=== PATIENT | male | born 1975 | race Caucasian/White ===

== ENCOUNTER → 2019-03-19 | Outpatient (REF) ==
[~2019-03-19] MED LIST: ALB17R INH; ALB18R INH; ALB6.7R INH; AZI250 PO; AZIT-17 PO; CEP500 PO; CLIN300C99 PO; CPAP INH; DIA5 PO; DUL100/5PT INH; FLUT16SP19 NS; FLUT1DIS28 IH; HYDR-3250 PO; HYDR-385 PO; HYDR2TAB74 PO; IBUP-56 PO; IPRA4AER IH; KET10 PO; LORA-802 PO; METH4TAB66 PO; METR500T15 PO; MON10 PO; NAPR-744 PO; ONDA4TAB PO; OSE75 PO; OXYC-869 PO; PER PO; PRED20TA6 PO
[2019-03-19 10:21] LABS: LDL CHOLESTEROL 109 mg/dl
== END ==
DX: Z02.9 Encounter for administrative examinations, unspecified (principal)

== ENCOUNTER → 2019-03-28 | Outpatient (CLI) | payer OTHER ==
--- NOTE | 2019-03-28 09:26 | RADIOLOGY IMAGING REPORT ---
FACILITY: [facility] - [place] PATIENT NAME: Kalia Bermudez : 1975 MR: [id number] V: [id number] EXAM DATE: ORDERING PHYSICIAN: JUDD COHEN TECHNOLOGIST: Location: Patient: Kalia Bermudez : 1975 Visit/Account:[id number] Date of Sevice: 03/28/2019 THYROID HISTORY: Thyroid nodule COMPARISON: None. FINDINGS: SIZE: Right lobe: 5.2 x 1.9 x 2.1 cm Left lobe: 4.7 x 2.1 x 1.9 cm Isthmus: 4 mm PARENCHYMA: Homogeneous. NODULES: Right lobe: * None discrete. Left lobe: * In the mid left lobe there is a 1 x 1.2 x 1.1 cm hypoechoic with microlobulated margins and contai ns microcalcifications. Isthmus: * None discrete. VASCULARITY: Within normal limits. ADDITIONAL FINDINGS: None. IMPRESSION: In the mid left lobe there is a 1 x 1.2 x 1.1 cm hypoechoic mass with microlobulated margins and micr ocalcifications. Ultrasound-guided fine-needle aspiration biopsy is recommended . REFERENCE: 2015 [place] [employer] Management Guidelines for Adult Patients with Thyroid Nodules and D ifferentiated Thyroid Cancer: The [place] [employer] Guidelines Task Force on Thyroid Nodul es and Differentiated Thyroid Cancer. SONOGRAPHIC PATTERNS: * Benign: Purely cystic nodules (no solid component); estimated risk of malignancy <1 percent; no bi opsy recommended. * Very Low Suspicion: Spongiform or partially cystic nodules without any of the sonographic features described in low, intermediate, or high suspicion patterns; estimated risk of malignancy <3 percent; consider FNA at > 2 cm (Observation without FNA is also a reasonable option). * Low Suspicion: Isoechoic or hyperechoic solid nodule, or partially cystic nodule with eccentric so lid areas, without microcalcification, irregular margin or ETE (extra-thyroidal extension), or taller than wide shape; estimated risk of malignancy 5-10 percent; recommend FNA at >1.5 cm. * Intermediate Suspicion: Hypoechoic solid nodule with smooth margins without microcalcifications, E TE (extra-thyroidal extension), or taller than wide shape; estimated risk of malignancy 10-20 percent ; recommend FNA at > 1 cm. * High Suspicion: Solid hypoechoic nodule or solid hypoechoic component of a partially cystic nodule with one or more of the following features: irregular margins (infiltrative, microlobulated), microc alcifications, taller than wide shape, rim calcifications with small extrusive soft tissue component, evidence of ETE (extra-thyroidal extension); estimated risk of malignancy >70-90 percent; recommend FNA at > 1 cm. NOTES: * Although a sonographically suspicious subcentimeter thyroid nodule without evidence of extrathyroi alden extension or sonographically suspicious lymph nodes may be observed with close sonographic follow -up rather than pursuing immediate FNA, patient age and preference may modify decision-making. A > 50% interval increase in nodule volume and/or development of new suspicious sonographic features are felt to be a valid reasons for potential re-aspiration of a nodule previously shown to have benig n FNA cytology. Report Dictated By: Avis Oakes MD at 03/28/2019 9:19 AM Report E-Signed By: Avis Oakes MD at 03/28/2019 9:22 AM WSN:[email or web address]
== END ==
LOC: US 00:30
PROVIDERS: ATTEND Internal Medicine
DX: E04.1 Nontoxic single thyroid nodule (principal)
CPT/HCPCS: 76536

== ENCOUNTER → 2019-03-31 | Outpatient (CLI) | payer OTHER ==
[2019-03-31 17:32] LABS: INR 1.01
== END ==
LOC: LAB 16:45
PROVIDERS: ATTEND Internal Medicine
DX: Z01.818 Encounter for other preprocedural examination (principal); R93.89 Abnormal findings on diagnostic imaging of other specified body structures
CPT/HCPCS: 36415; 85610

== ENCOUNTER → 2019-04-01 | Outpatient (CLI) | payer OTHER ==
--- NOTE | 2019-04-01 12:22 | RADIOLOGY IMAGING REPORT ---
FACILITY: [facility] - [place] PATIENT NAME: Kalia Bermudez : 1975 MR: [id number] V: [id number] EXAM DATE: ORDERING PHYSICIAN: JUDD COHEN TECHNOLOGIST: Location: [facility] - [place] Patient: Kalia Bermudez : 1975 Visit/Account:[id number] Date of Sevice: 04/01/2019 Ultrasound guided thyroid fine-needle aspiration Indication: Indeterminate left thyroid nodule Comparison: March 28, 2019. Findings: After informed consent was obtained, the patient was prepped and draped in the standard megan rile fashion. Local anesthesia was obtained with 1% lidocaine. Using ultrasound guidance, 4 fine-needle aspirates were obtained of a predominantly solid nodule with in the mid left thyroid lobe. Pathology reported that the sample was adequate. There were no immediate complications and the patient tolerated the procedure well. IMPRESSION: 1. Successful ultrasound guided fine needle aspiration thyroid nodule within the mid left thyroid lob e Report Dictated By: Tyler Marin MD at 04/01/2019 12:16 PM Report E-Signed By: Tyler Marin MD at 04/01/2019 12:17 PM WSN:[email or web address]
== END ==
LOC: US 07:01
PROVIDERS: ATTEND Internal Medicine
DX: E04.1 Nontoxic single thyroid nodule (principal)
CPT/HCPCS: 10005; 88104; 88172

== ENCOUNTER → 2019-04-17 | Outpatient (CLI) | payer OTHER ==
[~2019-04-17] MED LIST changes: +IOPAMIDOL 76% 100 ML INFUS BTL 100 ML ONE
--- NOTE | 2019-04-17 13:25 | RADIOLOGY IMAGING REPORT ---
[place] [facility] [place] NAME: Kalia Bermudez : 1975 MR: [id number] V: [id number] EXAM DATE: ORDERING PHYSICIAN: SHAD TEMPLETON TECHNOLOGIST: Location: [facility] Patient: Kalia Bermudez : 1975 Visit/Account:[id number] Date of Sevice: 04/17/2019 CT neck with contrast Comparison: None Additional pertinent history: Thyroid cancer TECHNIQUE: Multiple axial images were obtained from the mid portion of the brain through the superio r mediastinum with IV contrast. Coronal and sagittal reformatted images were obtained off the axial source data. One of the following dose optimization techniques was utilized in the performance of t his exam: Automated exposure control; adjustment of the mA and/or kV according to the patient's size; or use of an iterative reconstruction technique. Specific details can be referenced in the [facility] y's radiology CT exam operational policy. CONTRAST: 75 mL of Isovue-370 FINDINGS: Visualized portions of the brain parenchyma:Negative Parotid glands/submandibular glands/thyroid: Negative Orbits: Negative Paranasal sinuses: Negative Parapharyngeal spaces: Negative Nasopharynx/oropharynx/hypopharynx: Negative Tonsillar pillars: Negative Oral tongue/tongue base: Negative True and false cords: Negative Lymph node assessment:Negative Surrounding soft tissues: Negative Vasculature: Negative Osseous structures: Negative Lung apices: Negative IMPRESSION: 1. No acute process involving the neck. Report Dictated By: Gen Mcmanus MD at 04/17/2019 12:36 PM Report E-Signed By: Gen Mcmanus MD at 04/17/2019 1:20 PM WSN:[email or web address]
--- NOTE | 2019-04-17 15:02 | RADIOLOGY IMAGING REPORT ---
FACILITY: [facility] - [place] PATIENT NAME: Kalia Bermudez : 1975 MR: [id number] V: [id number] EXAM DATE: ORDERING PHYSICIAN: SHAD TEMPLETON TECHNOLOGIST: Location: [facility] Patient: Kalia Bermudez : 1975 Visit/Account:[id number] Date of Sevice: 04/17/2019 CT CHEST (CONTRAST) History: Thyroid cancer check for metastatic disease TECHNIQUE: Contiguous axial images were performed through the chest to the level of the adrenal gla nds following the administration of IV contrast. Coronal and sagittal reformatting was also perform ed.Dose Lowering Technique One of the following dose optimization techniques was utilized in the performance of this exam: Autom ated exposure control; adjustment of the mA and/or kV according to the patient's size; or use of an i terative reconstruction technique. Specific details can be referenced in the facility's radiology C T exam operational policy. Contrast: 75 mL Isovue-370 COMPARISON STUDIES: none. Lungs / Pleura: There is no evidence of pulmonary nodules pulmonary infiltrates or pleural effusion s. The inferior most aspect of the lower lobes are not entirely included on the study Mediastinum/nodes: No pathologically enlarged mediastinal lymph nodes are identified by size criteri a Heart and vessels: negative. Musculoskeletal / Body wall: The proximal 1 cm left-sided thyroid nodule is a faintly visualized al though is better detected sonographically Upper abdomen: There is mild hepatic steatosis IMPRESSION: No evidence of pulmonary metastases however the inferior most aspect of the lower lobes are not inclu ded on the study Report Dictated By: Avis Oakes MD at 04/17/2019 2:54 PM Report E-Signed By: Avis Oakes MD at 04/17/2019 2:57 PM WSN:[email or web address]
== END ==
LOC: CT 01:06
PROVIDERS: ATTEND Surgery
DX: C73 Malignant neoplasm of thyroid gland (principal)
CPT/HCPCS: 70491; 71260; Q9967

== ENCOUNTER → 2019-05-06 | Outpatient (CLI) | payer OTHER ==
[~2019-05-06] MED LIST changes: +ACET500T68 PO; +IBUP400T13 PO; -IOPAMIDOL 76% 100 ML INFUS BTL 100 ML ONE
--- NOTE | 2019-05-06 12:16 | EKG ---
FACILITY: [facility] PATIENT NAME: BENJAMIN LIAO : [id number] MR: [id number] V: [id number] EXAM DATE: ORDERING PHYSICIAN: JUDD COHEN TECHNOLOGIST: LEYDI Test Reason : PRE-OP Blood Pressure : / mmHG Vent. Rate : 074 BPM Atrial Rate : 074 BPM P-R Int : 166 ms QRS Dur : 076 ms QT Int : 384 ms P-R-T Axes : 025 014 039 degrees QTc Int : 426 ms Normal sinus rhythm Normal ECG When compared with ECG of 07-AUG-2016 08:19, No significant change was found Confirmed by JEN HOWELL ([id number]) on 05/07/2019 12:56:50 AM Referred By: VICKI Confirmed By:JEN HOWELL
== END ==
LOC: CARD 08:56
PROVIDERS: ATTEND Internal Medicine
DX: Z02.9 Encounter for administrative examinations, unspecified (principal)

== ENCOUNTER 2019-05-15 00:19 | Observation (INO) | payer OTHER ==
[~2019-05-15] VITALS: Ht 182.9 cm; Wt 147.0 kg
[2019-05-15] VITALS (14 sets, daily range): BP systolic 110–149; BP diastolic 67–91
[2019-05-15] MEDS ORDERED: VANCOMYCIN IVPB ONE (08:15)
[2019-05-15] MEDS ORDERED: [UNRECOGNIZED DRUG - OTHER] IVPB ONE (08:15)
[2019-05-15] MEDS ORDERED: VANCOMYCIN(*) 1 GM VIAL 2 GM, VANCOMYCIN (*) 0.5 GM VIAL 0.25 GM in NS(*) 0.9% 500 ML B... IVPB ONE ×2 (08:15)
[2019-05-15] MEDS ORDERED: VANCOMYCIN(*) 1 GM VIAL 2 GM in NS(*) 0.9% 250 ML BAG 250 ML IVPB ONE (08:15)
[2019-05-15] MEDS ORDERED: VANCOMYCIN(*) 1 GM VIAL 1.5 GM in NS(*) 0.9% 250 ML BAG 250 ML IVPB ONE (08:30)
[2019-05-15] MEDS ORDERED: ceFAZolin(*) 1 GM VIAL 3 GM in NS(*) 0.9% 100 ML BAG 100 ML IVPB ONE (09:00)
[2019-05-15] MEDS ORDERED: fentaNYL CITR 250 MCG/5 ML AMP ONE (09:24)
[2019-05-15] MEDS ORDERED: LIDOCAINE 2% IV 100 MG/5ML SYR ONE (09:25)
[2019-05-15] MEDS ORDERED: PROPOFOL EMUL(*) 10MG/ML 20 ML 20 ML ONE ×2 (09:25→10:54)
[2019-05-15] MEDS ORDERED: SUCCINYLCHOL CHL 100MG/5ML SYR IVP ONE (09:28)
[2019-05-15] MEDS ORDERED: MIDAZOLAM 2 MG/2 ML VIAL IVP PRN (09:55)
[2019-05-15] MEDS ORDERED: NORMOSOL R SOLN(*) 1000 ML BAG 1,000 ML IV PRN (09:55)
[2019-05-15] MEDS ORDERED: FAMOTIDINE 20 MG TAB PO ONE (09:55)
[2019-05-15] MEDS ORDERED: LIDOCAINE/SOD BICARB 8.4% SYR ID ONE (09:55)
[2019-05-15] MEDS ORDERED: ROPIVACAINE 0.5% 20 ML VIAL ONE (09:56)
[2019-05-15] MEDS ORDERED: DEXAMETHASONE SOD 4 MG/ML VIAL ONE (10:15)
[2019-05-15] MEDS ORDERED: KETAMINE HCL 200 MG/20 ML MDV ONE ×2 (10:20→11:27)
[2019-05-15] MEDS ORDERED: fentaNYL CITR 100 MCG/2 ML AMP ONE ×2 (10:58→13:11)
[2019-05-15] MEDS ORDERED: ONDANSETRON 4 MG/2 ML VIAL ONE (11:53)
[2019-05-15] MEDS ORDERED: ALBUTEROL/IPRATROPIUM 3 ML NEB NEB PRN (12:55)
[2019-05-15] MEDS ORDERED: NS(*) 0.9% 1000 ML BAG 1,000 ML IV PRN (12:55)
[2019-05-15] MEDS ORDERED: FLUSH 10 ML SYR IVP PRN (12:55)
[2019-05-15] MEDS ORDERED: HYDROmorphone HCL 2 MG/ML SDV IVP PRN (12:55)
[2019-05-15] MEDS ORDERED: ONDANSETRON 4 MG/2 ML VIAL IVP PRN (12:55)
--- NOTE | 2019-05-15 13:26 | Post Operative Progress Note ---
Post Operative Progress Note Date: May 15, 2019 Time: 12:59 Surgeon: Kushal Dictation number: [id number] Anesthesia: GETA by Dr. 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
[2019-05-15] MEDS: traMADol 50 MG TAB PO PRN ×2 (14:38→18:50)
[2019-05-15] MEDS: ACETAMINOPHEN 325 MG TAB PO PRN ×2 (14:38→18:49)
--- NOTE | 2019-05-15 15:02 | OPERATIVE REPORT 1 ---
EVENT DATE: May 15, 2019 SURGEON: Efren Fatima MD ANESTHESIOLOGIST: Farshad Jones MD ANESTHESIA: General endotracheal anesthesia. PREOPERATIVE DIAGNOSIS Left lobe papillary thyroid carcinoma. POSTOPERATIVE DIAGNOSIS Left lobe papillary thyroid carcinoma. PROCEDURE PERFORMED Left thyroid lobectomy. COMPLICATIONS None. CONDITION Stable. BLOOD LOSS Minimal. SPECIMENS Left thyroid lobe. 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 Apparently, they were testing out a piece of imaging equipment, possibly related to their MRI machine but possibly something else, and he volunteered to be the subject and incidentally found was a left thyroid nodule. Subsequent thyroid ultrasound and ultrasound guided biopsy revealed the nodule to be a papillary thyroid carcinoma that measured 1.4 cm in diameter. He was then referred to me, and we further worked him up for lymphadenopathy, and with a neck and chest CT, and there was no evidence of cancer elsewhere in his neck or chest, in the lymph nodes, or otherwise. I then discussed with him performing a left thyroid lobectomy due to the small size of the primary tumor. I did explain that it is possible he may require a right thyroid lobectomy or a completion thyroidectomy at some point in the future, and he agreed to proceed with a left thyroid lobectomy. DESCRIPTION OF PROCEDURE The patient was brought to the operating room and placed supine on the operating table. General endotracheal anesthesia was administered, and I inserted the nerve monitor leads in the dermis of his upper chest. The nerve monitor and endotracheal tube were inserted without any problems as well. He was placed in the reclining beach chair position on the table, and his neck was prepped and draped in a sterile fashion. Timeout was completed. I identified a good location for his incision in the suprasternal location and then made a 6 cm transversely oriented Deb-type incision parallel with the Narinder lines and dissected through the dermis and subcutaneous fat and then identified the platysma muscle, which I divided. I created subplatysmal flaps up to the thyroid cartilage and down to the sternal notch. I then divided the median raphe vertically in the midline all the way down to the thyroid and then started my dissection to the left of midline anterior to the thyroid deep to the strap muscles. I dissected all the way around the thyroid laterally and then divided the inferior thyroidal vessels around the inferior pole and the superior thyroidal vessels around the superior pole, which helped mobilize the left thyroid lobe medially. I divided the isthmus by creating a plane between the anterior trachea and the thyroid, and this further helped mobilize it. I dissected laterally into the ligament of Sullivan, but not too far so as not to injure the nerve. As I got into nerve territory, I used the nerve monitor and identified the nerve very clearly, which was intimately associated with the thyroid gland, and took some fine dissection to separate the thyroid away from the nerve. I identified the superior parathyroid gland, which was left in situ. The inferior parathyroid, I think, was in some fat and was not clearly identified, but not clearly removed either. I slowly dissected the thyroid away from the nerve using the nerve monitor throughout this process to continue to ensure function of the nerve and ultimately was able to divide the ligament of Sullivan and separate the thyroid from the nerve and then passed this off the field. I then tested the nerve once again, and it was functional all along its entire course with no evidence of injury. There was no active bleeding. I irrigated and dried the wound in the neck and then placed a 10 mm round drain into this space and exited the neck in the midline. I also placed a piece of Fibrillar hemostatic agent in the neck as well. I then closed the strap muscles with interrupted 3-0 Vicryl sutures, then the platysma was closed with interrupted 3-0 Vicryl sutures, and then the skin was closed with interrupted 3- 0 Vicryl deep dermal sutures and 4-0 Monocryl running subcuticular sutures. Skin was cleaned and dried, and Steri-Strips were applied, and then I secured the drain to the skin with a single 0 silk suture and then placed drain dressings around the drain. We extubated the patient deep and then inspected the cords, and they were symmetric. An LMA was then placed to allow him to wake up a little more slowly, but ultimately he was awakened and the LMA removed. He was transported to the recovery room in stable condition having tolerated the procedure without apparent problems. AVNI
[2019-05-15] MEDS: SALMETEROL/FLUTIC 250/50 1 INH INH SCH (17:34)
[2019-05-15] MEDS: FAMOTIDINE 20 MG TAB PO SCH (21:26)
[2019-05-15] MEDS: DOCUSATE SODIUM 100 MG CAP PO SCH (21:26)
[2019-05-16 03:27] VITALS: BP 122/74
[2019-05-16] MEDS: traMADol 50 MG TAB PO PRN (03:39)
[2019-05-16] MEDS: ACETAMINOPHEN 325 MG TAB PO PRN (03:40)
[2019-05-16] MEDS: SALMETEROL/FLUTIC 250/50 1 INH INH SCH (05:19)
[2019-05-16 07:01] VITALS: BP 114/67
[2019-05-16] MEDS ORDERED: DOCU-202 PO (08:12)
[2019-05-16] MEDS ORDERED: TRAM-420 PO (08:12)
--- NOTE | 2019-05-16 08:15 | Short(Outpt) Discharge Summary ---
Discharge Summary Reason for Hosp/Final Diag: (1) Papillary thyroid carcinoma Status: Chronic Hospital Course & Plan: 05/16/19: POD#1 s/p left thyroid lobectomy. Pt doing well. No issues overnight. Drain output minimal; drain removed this morning. Will d/c to home. Departure Discharge to: Home, Self Care Discharge Instructions Home Meds Active Scripts Tramadol Hcl (TRAMADOL HCL) 50 Mg Tablet, 1 TAB PO Q4H PRN for PAIN, #15 TAB 0 Refills Prov:SHAD TEMPLETON MD 05/16/19 Docusate Sodium (DOCUSATE SODIUM) 100 Mg Capsule, 1 CAP PO BID, #30 CAPSULE 0 Refills Prov:SHAD TEMPLETON MD 05/16/19 Fluticasone/Salmeterol (ADVAIR 250-50 DISKUS) 1 Each Disk.w.dev, 1 EACH IH BID, #1 DISK 6 Refills Prov:JUDD COHEN MD 05/06/19 Albuterol Sulfate (PROVENTIL HFA) 6.7 Gm Inh, 2 PUFF INH Q4-6H, #1 INH 0 Refills Prov:JUDD COHEN MD 10/24/18 Reported Medications Ibuprofen (IBUPROFEN) 400 Mg Tablet, 2 TAB PO Q6H PRN for PAIN, TAB 05/07/19 Acetaminophen (TYLENOL EXTRA STRENGTH) 500 Mg Tablet, 500 MG PO PRN, TAB 05/07/19 Follow up Referrals: General Surgery - 05/28/19 @ Surgery, General with SHAD TEMPLETON MD You have a follow up appointment scheduled with Dr. Templeton on 05/28/19, at 3:45pm. Diet: Regular Activity: As Tolerated Special Instructions: You may remove the drain dressing on 05/17/19, then you can shower. After showering, leave the incision and drain site open to air but leave the steristrips in place until they fall off on their own. Do not immerse the incision or drain site for 2 weeks. Avoid any activity that involves straining or lifting more than 10 pounds for 5 days after surgery. SHAD TEMPLETON MD May 16, 2019 08:15
[2019-05-16 08:24] VITALS: Ht 182.9 cm; Wt 147.0 kg
[2019-05-16] MEDS: DOCUSATE SODIUM 100 MG CAP PO SCH (08:51)
[2019-05-16] MEDS: FAMOTIDINE 20 MG TAB PO SCH (08:51)
[2019-05-16 10:09] VITALS: BP 119/77
== END 2019-05-16 09:09 | disposition home or self-care (01) ==
LOC: OR 00:19 → INTOOBSV 14:10 → MED 14:10
PROVIDERS: ADMIT Surgery; ATTEND Surgery
DX: C73 Malignant neoplasm of thyroid gland (principal); G47.33 Obstructive sleep apnea (adult) (pediatric); E66.01 Morbid (severe) obesity due to excess calories; Z68.41 Body mass index [BMI] 40.0-44.9, adult; J45.909 Unspecified asthma, uncomplicated; Z99.81 Dependence on supplemental oxygen
CPT/HCPCS: 36415; 60210; 88307; 94640; G0378; J0330; J1100; J2001; J2250; J2405; J2704; J2795; J3010; J3370; J3490; J3535; J7040; 82310; 82374; 82435; 82565; 82947; 84132; 84295; 84520

== ENCOUNTER 2019-06-05 01:06 | Observation (INO) | payer OTHER ==
[2019-06-03 16:39] LABS: PLATELET COUNT, AUTOMATED 210 K/uL (150-450)
[~2019-06-05] VITALS: Ht 182.9 cm; Wt 147.0 kg
[2019-06-05] VITALS (11 sets, daily range): BP systolic 109–145; BP diastolic 65–87
[~2019-06-05 01:06] MED LIST changes: +DOCU-202 PO; +TRAM-420 PO
[2019-06-05] MEDS ORDERED: LIDOCAINE MPF 1% 5 ML VIAL ONE (07:52)
[2019-06-05] MEDS ORDERED: METOCLOPRAMIDE 10 MG/2 ML SDV ONE ×2 (07:52→09:32)
[2019-06-05] MEDS ORDERED: PROPOFOL EMUL(*) 10MG/ML 20 ML 20 ML ONE (07:52)
[2019-06-05] MEDS ORDERED: ONDANSETRON 4 MG/2 ML VIAL ONE (07:52)
[2019-06-05] MEDS ORDERED: DEXAMETHASONE SOD 4 MG/ML VIAL ONE (09:39)
[2019-06-05] MEDS ORDERED: VANCOMYCIN(*) 1 GM VIAL 2.25 GM in NS(*) 0.9% 250 ML BAG 250 ML IVPB ONE ×2 (10:55→12:30)
[2019-06-05] MEDS ORDERED: fentaNYL CITR 250 MCG/5 ML AMP ONE (11:05)
[2019-06-05] MEDS ORDERED: ROCURONIUM BR 10 MG/ML 5 ML SY 5 ML ONE (11:07)
[2019-06-05] MEDS ORDERED: MIDAZOLAM 2 MG/2 ML VIAL IVP PRN (12:30)
[2019-06-05] MEDS ORDERED: PREGABALIN 150 MG CAPSULE PO ONE (12:30)
[2019-06-05] MEDS ORDERED: FAMOTIDINE 20 MG TAB PO ONE (12:30)
[2019-06-05] MEDS ORDERED: NORMOSOL R SOLN(*) 1000 ML BAG 1,000 ML IV PRN (12:30)
[2019-06-05] MEDS ORDERED: LIDOCAINE/SOD BICARB 8.4% SYR ID ONE (12:30)
[2019-06-05] MEDS ORDERED: ACETAMINOPHEN 500 MG TAB PO ONE (12:30)
[2019-06-05] MEDS ORDERED: ROPIVACAINE 0.5% 20 ML VIAL ONE (13:09)
[2019-06-05] MEDS ORDERED: KETAMINE HCL 200 MG/20 ML MDV ONE (13:28)
[2019-06-05] MEDS ORDERED: SUCCINYLCHOL CHL 100MG/5ML SYR IVP ONE (13:30)
[2019-06-05] MEDS ORDERED: LIDOCAINE 2% IV 100 MG/5ML SYR ONE (15:42)
[2019-06-05] MEDS ORDERED: fentaNYL CITR 100 MCG/2 ML AMP ONE (16:38)
[2019-06-05] MEDS ORDERED: FLUSH 10 ML SYR IVP PRN (16:40)
[2019-06-05] MEDS ORDERED: ONDANSETRON 4 MG/2 ML VIAL IVP PRN (16:40)
[2019-06-05] MEDS ORDERED: NS(*) 0.9% 1000 ML BAG 1,000 ML IV PRN (16:40)
[2019-06-05] MEDS ORDERED: MORPHINE 2 MG/ML SYR IVP PRN (16:40)
[2019-06-05] MEDS ORDERED: ACETAMINOPHEN 325 MG TAB PO PRN (16:40)
--- NOTE | 2019-06-05 16:52 | Post Operative Progress Note ---
Post Operative Progress Note Date: Jun 05, 2019 Time: 16:43 Surgeon: Kushal Dictation number: [id number] Anesthesia: GETA by Dr. Marie Pre-Op Diagnosis: Papillary thyroid cancer Post-Op Diagnosis: KRYSTIN Findings: None Procedure(s): Completion right thyroid lobectomy Specimen Removed:(May be N/A): Right thyroid lobe Complications: None Fluids: see anesthesia record Estimated Blood Loss: Minimal Date OP Note Dictated: Jun 05, 2019 Time OP Note Dictated: 16:44 SHAD TEMPLETON MD Jun 05, 2019 16:52
[2019-06-05 16:55] LABS: PLATELET COUNT, AUTOMATED 193 K/uL (150-450)
--- NOTE | 2019-06-05 17:35 | OPERATIVE REPORT 1 ---
EVENT DATE: June 05, 2019 SURGEON: Efren Fatima MD ANESTHESIOLOGIST: Efren Marie MD ANESTHESIA: General endotracheal anesthesia. PREOPERATIVE DIAGNOSIS Papillary thyroid cancer, left lobe. POSTOPERATIVE DIAGNOSIS Papillary thyroid cancer, left lobe. PROCEDURE PERFORMED Completion right thyroid lobectomy. COMPLICATIONS None. CONDITION Stable. BLOOD LOSS Minimal. INDICATIONS This is a 44-year-old gentleman who I removed his left thyroid lobe three or four weeks ago for a papillary thyroid cancer that was about 1.6 cm in diameter, but the anterior margin came up to the capsule, and the margin was positive, and so I consented him for a completion right thyroid lobectomy in preparation for radioactive iodine treatment. DESCRIPTION OF PROCEDURE The patient was brought to the operating room and placed upon the operating table. General endotracheal anesthesia was administered with a nerve monitoring endotracheal tube. He was placed in a reclining beach chair position with his arms tucked at his sides and his neck extended. His neck was then prepped and draped in a sterile fashion. Timeout was completed. I injected the skin around the previous scar with 0.5% ropivacaine plain. I then made an incision right through the previous Deb transverse incision from the previous thyroid lobectomy, dissected through the dermis and subcutaneous fat, identified the platysma muscle, divided this, created subplatysmal flaps up to the thyroid cartilage and down to the sternum, and then divided the median raphe between the vertical strap muscles down to identify the thyroid. I then dissected posterior to the strap muscles laterally around the thyroid and sequentially dissected around the superior and inferior poles and then carefully went through the superior and inferior pole vascular bundles, which served to mobilize the thyroid. I went around the lateral edge and used the nerve monitor to monitor for the nerve location, and I was able to identify the nerve as well as both parathyroid glands. I dissected from lateral to medial to the ligament of Sullivan and then dissected the thyroid off the trachea, being careful to preserve the recurrent laryngeal nerve and the parathyroid glands. The thyroid lobe was passed off the field. The wound was irrigated and dried, and I placed some Fibrillar Surgicel into the wound. I then placed a 10-German round drain into the patient's right neck, and it exited in the suprasternal notch. I sewed the drain to the skin with a 3-0 silk suture. After making sure that the wound continued to be hemostatic, I closed the strap muscles in the midline with interrupted 3-0 Vicryl sutures and then closed the platysma muscle with interrupted 3-0 Vicryl sutures, and then the skin was closed with interrupted 3- 0 Vicryl deep dermal sutures and 4-0 Monocryl running subcuticular sutures. The skin was cleaned and dried, and Steri-Strips were applied. I covered the drains with drain dressings. We then extubated the patient rather deep. I inspected the vocal cords, and they were symmetric. Then, he was reintubated with an LMA until he was woken up a little bit more. The anesthesiologist removed the LMA, and he was brought to the recovery room in good condition. AVNI
[2019-06-05] MEDS ORDERED: ALB6.7R INH (17:36)
[2019-06-05] MEDS: CALCIUM CARBONATE/VITAMIN D3 PO SCH (17:59)
[2019-06-05] MEDS: traMADol 50 MG TAB PO PRN (17:59)
[2019-06-05] MEDS: FAMOTIDINE 20 MG TAB PO SCH (20:36)
[2019-06-05] MEDS: DOCUSATE SODIUM 100 MG CAP PO SCH (20:37)
[2019-06-06 00:48] VITALS: BP 110/72
[2019-06-06] MEDS: traMADol 50 MG TAB PO PRN (00:55)
[2019-06-06 02:00] VITALS: BP 110/67
[2019-06-06 05:39] LABS: PLATELET COUNT, AUTOMATED 187 K/uL (150-450)
[2019-06-06 07:09] VITALS: BP 98/56
[2019-06-06] MEDS: FAMOTIDINE 20 MG TAB PO SCH (08:42)
[2019-06-06] MEDS: DOCUSATE SODIUM 100 MG CAP PO SCH (08:42)
[2019-06-06] MEDS: CALCIUM CARBONATE/VITAMIN D3 PO SCH (08:42)
[2019-06-06] MEDS ORDERED: Calcium Carbonate/Vitamin D3 PO (08:47)
[2019-06-06] MEDS ORDERED: DOCU-202 PO (08:47)
[2019-06-06] MEDS ORDERED: TRAM-420 PO (08:47)
[2019-06-06 08:49] VITALS: Ht 182.9 cm; Wt 147.0 kg
--- NOTE | 2019-06-06 08:52 | Short(Outpt) Discharge Summary ---
Discharge Summary Reason for Hosp/Final Diag: (1) Thyroid cancer Status: Chronic Hospital Course & Plan: 06/06/19: POD#1 s/p completion right thyroid lobectomy. Doing well. Calcium OK this morning. Drain removed. He's doing well. D/C to home this morning. Departure Discharge to: Home, Self Care Discharge Instructions Home Meds Active Scripts Docusate Sodium (DOCUSATE SODIUM) 100 Mg Capsule, 1 CAP PO BID, #30 CAPSULE 0 Refills Prov:SHAD TEMPLETON MD 06/06/19 [Calcium Carbonate/Vitamin D3] 1 ea TAB No Conflict Check, 1 TAB PO BIDBS, #30 TAB 0 Refills Prov:SHAD TEMPLETON MD 06/06/19 Tramadol Hcl (TRAMADOL HCL) 50 Mg Tablet, 1 TAB PO Q4H PRN for PAIN, #15 TAB 0 Refills Prov:SHAD TEMPLETON MD 06/06/19 Fluticasone/Salmeterol (ADVAIR 250-50 DISKUS) 1 Each Disk.w.dev, 1 EACH IH BID, #1 DISK 6 Refills Prov:JUDD COHEN MD 05/06/19 Albuterol Sulfate (PROVENTIL HFA) 6.7 Gm Inh, 2 PUFF INH Q4-6H, #1 INH 0 Refills Prov:JUDD COHEN MD 10/24/18 Reported Medications Albuterol Sulfate (PROVENTIL HFA) 6.7 Gm Inh, 2 PUFF INH Q4-6H PRN for WHEEZING, INH 06/05/19 Acetaminophen (TYLENOL EXTRA STRENGTH) 500 Mg Tablet, 500 MG PO PRN, TAB 05/07/19 Discontinued Scripts Docusate Sodium (DOCUSATE SODIUM) 100 Mg Capsule, 1 CAP PO BID, #30 CAPSULE 0 Refills Prov:SHAD TEMPLETON MD 05/16/19 Follow up Referrals: General Surgery - 06/23/19 @ Surgery, General with SHAD TEMPLETON MD You have a follow up appointment scheduled with Dr. Templeton on 06/23/19, at 4:00pm. Diet: Regular Activity: No Heavy Lifting Special Instructions: You may remove the dressing from your drain site on 06/07/19, then you can shower. After showering, leave the incision and drain site open to air (if there's no further drainage, cover the drain site if it's draining and change daily until no further drainage) but leave the steristrips in place until they fall off on their own. Do not immerse the incisions for 2 weeks. Avoid taking NSAIDS (ibuprofen, motrin, aleve, advil, naprosyn, naproxen, aspirin, etc) until 06/09/19. Tylenol (acetaminophen) is OK to take. Avoid any activity that involves straining or lifting more than 10 pounds for 1 week after surgery. Have your blood drawn so I can check your TSH and calcium on the morning of your follow up appointment so I'll have the results when I see you back at your appointment. SHAD TEMPLETON MD Jun 06, 2019 08:52
== END 2019-06-06 08:44 | disposition home or self-care (01) ==
LOC: OR 01:06 → INTOOBSV 17:24 → MED 17:24
PROVIDERS: ADMIT Surgery; ATTEND Surgery
DX: C73 Malignant neoplasm of thyroid gland (principal)
CPT/HCPCS: 36415; 60260; 84443; 85025; 88307; G0378; J0330; J1100; J2001; J2250; J2405; J2704; J2765; J2795; J3010; J3370; J3490; J7050; 82310; 82374; 82435; 82565; 82947; 84132; 84295; 84520

== ENCOUNTER → 2019-07-15 | Outpatient (CLI) | payer OTHER ==
[2019-06-06 08:49] VITALS: BMI 43.9
[~2019-07-15] MED LIST changes: +Calcium Carbonate/Vitamin D3 PO
--- NOTE | 2019-07-16 05:56 | PROCEDURE NOTE ---
EVENT DATE: July 15, 2019 DIAGNOSIS Papillary carcinoma of the thyroid gland. Status post left thyroid lobectomy, 05/15/19; completion thyroidectomy, 06/06/19. Referral for iodine-131 considerations with 1.5 cm tumor with extension to margins. Pathologic T1b pNX. PROCEDURE Oral administration under direct supervision of iodine-131. Patient has been appropriately counseled regarding radiation therapy precautions, which were reviewed with the patient today. He is appropriately hypothyroid for the procedure, with a TSH elevation at 97 on 07/01/19. Patient received an oral dose of 104.3 mCi of iodine-131 today in the nuclear medicine department at [facility]. Patient will start levothyroxine replacement therapy in 72 hours. He has scheduled appointments for the whole-body met scan in approximately 10 days. I have also scheduled the patient for baseline post-treatment CT scan of the neck and staging CT of the thorax, thyroglobulin tumor marker, TSH, free T4 in six weeks. Electronic medical record was reviewed in detail, along with the consultation from Dr. Hartmann, operative and pathology notes. All questions were answered to the patient's satisfaction, and signed consent has been obtained for treatment. Patient is instructed to call me if he has any adverse effects from the therapy. FELIPAD
== END ==
LOC: NUC 01:12
PROVIDERS: ATTEND Radiology Radiation Oncology
DX: C73 Malignant neoplasm of thyroid gland (principal)
CPT/HCPCS: 79005; A9517; A9528